=== PATIENT | male | born 1945 | race Caucasian/White ===

== ENCOUNTER 2018-03-28 08:07 | Emergency (ER) | payer OTHER ==
[~2018-03-28] VITALS: Ht 170.2 cm; Wt 63.5 kg
--- NOTE | 2018-03-28 08:28 | NUR ---
DR FUCHS AT BEDSIDE TO REMOVE HOOK FROM PTS THUMB. PT TOLERATED WELL, WOUND CLEANED AND BACATRACIN APPLIED WITH DRESSING IN PLACE.
[2018-03-28] MEDS ORDERED: TETANUS/DIPHTHERIA TOX ADULT 0.5 ML SYR IM ONE (08:45)
[2018-03-28] MEDS ORDERED: LIDOCAINE HCL 1% LOCAL INJ 20 ML VIAL INJ ONE (08:45)
== END 2018-03-28 08:50 | disposition home or self-care (01) ==
LOC: FSED 08:07
DX: S60.351A Superficial foreign body of right thumb, initial encounter (principal); W26.8XXA Contact with other sharp object(s), not elsewhere classified, initial encounter; W45.8XXA Other foreign body or object entering through skin, initial encounter; W22.8XXA Striking against or struck by other objects, initial encounter; Y99.0 Civilian activity done for income or pay
CPT/HCPCS: 10120; 90471; 90714; 99282; J2001

== ENCOUNTER 2022-01-01 18:22 | Emergency (ER) | payer OTHER ==
[~2022-01-01] VITALS: Ht 170.2 cm; Wt 65.8 kg
[2022-01-01] MEDS ORDERED: Morphine 4mg INJECTION 4 MG/ML INJ IM STA (18:47)
[2022-01-01] MEDS ORDERED: HYDROCODONE/APAP 10MG-325MG TAB PO STA (19:02)
[2022-01-01] MEDS ORDERED: BUPIVACAINE HCL 0.25% 10ML MPF VIAL INJ STA (19:08)
[2022-01-01] MEDS ORDERED: LIDOCAINE 1% 5ML-MPF INJ STA (19:09)
[2022-01-01] MEDS ORDERED: HYDROCODONE/APAP 5MG-325MG TAB ONE (19:19)
[2022-01-01] MEDS ORDERED: LIDOCAINE HCL 1% LOCAL INJ 20 ML VIAL ONE (19:24)
[2022-01-01] MEDS ORDERED: PERCOCET 5-3251 EACH PO (19:46)
== END 2022-01-01 20:05 | disposition home or self-care (01) ==
LOC: FSED 18:47
DX: S97.81XA Crushing injury of right foot, initial encounter (principal); W22.8XXA Striking against or struck by other objects, initial encounter
CPT/HCPCS: 64450; 73630; 99283; J2001